=== PATIENT | male | born 1940 | race African-American/Black ===

== ENCOUNTER 2024-03-14 20:58 | Emergency (ER) | payer MEDICARE, OTHER ==
[~2024-03-14] VITALS: Ht 172.7 cm; Wt 79.8 kg
[2024-03-14] MEDS ORDERED: KETO0.0233 OP (22:46)
[2024-03-14] MEDS: DexAMETHasone SOD PHOS 10MG/1ML VIAL INJ IM ONE (22:54)
[2024-03-14] MEDS: diphenhdrAMINE HCL 25 MG CAP PO ONE (22:54)
[2024-03-14 22:55] VITALS: BP 136/82; PULSE 66; RESP 18; TEMP 98.4; O2SAT 99
== END 2024-03-14 23:12 | disposition home or self-care (01) ==
LOC: ER 20:58
DX: H10.12 Acute atopic conjunctivitis, left eye (principal)
CPT/HCPCS: 96372; 99283; J1100

== ENCOUNTER 2024-05-20 07:53 | Inpatient (IN) | payer MEDICARE, OTHER ==
[~2024-05-20] VITALS: Ht 172.7 cm; Wt 81.3 kg
[~2024-05-20 07:53] MED LIST: KETO0.0233 OP
[2024-05-20] MEDS: cloNIDine HCL 0.1 MG TAB PO ONE (08:12)
[2024-05-20 09:54] VITALS: PULSE 68; RESP 16; O2SAT 98
[2024-05-20 11:13] LABS: Basophils # (auto) 0.1 10 ^3/uL (0-0.2); Basophils % (auto) 2.1 % (0.0-2.0); Eosinophils # (auto) 0.3 10 ^3/uL (0-0.8); Hematocrit 40.6 % (41.0-53.0); Hemoglobin 13.5 g/dL (13.5-17.5); Lymphocytes # (auto) 1.2 10 ^3/uL (0.4-5.4); Lymphocytes % (auto) 26.3 % (10.0-50.0); Mean Corpuscular Hemoglobin 27.9 pg (28.0-32.0); Mean Corpuscular Hgb Conc. 33.2 g/dL (32.0-36.0); Monocytes # (auto) 0.5 10 ^3/uL (0-1.3); Neutrophils # (auto) 2.5 10 ^3/uL (1.6-8.6); Neutrophils % (auto) 54.6 % (37.0-80.0); Nucleated Red Blood Cells % 0.2 %; Platelet Count (auto) 178 10^3/uL (140-450); Red Blood Cells 4.83 10^6/uL (4.5-5.90); Red Cell Distribution Width 14.4 % (11.8-14.3); White Blood Cell 4.5 10^3/uL (4.4-10.8)
[2024-05-20 11:19] LABS: Calcium 9.9 mg/dL (8.7-10.4); Chloride 108 mmol/L (98-107); Potassium 3.8 mmol/L (3.5-5.1)
[2024-05-20 11:20] LABS: Carbon Dioxide 25 mmol/L (20-30)
[2024-05-20 11:25] LABS: BUN/Creatinine Ratio 10.2 (10.0-20.0); Blood Urea Nitrogen 13 mg/dL (9-23); Glucose 106 mg/dL (74-106)
[2024-05-20] MEDS: hydrALAZINE HCL 10 MG TAB PO ONE (11:32)
[2024-05-20 12:10] LABS: Anion Gap 8 (5-15); Sodium 141 mmol/L (136-145)
[2024-05-20] MEDS: ONDANSETRON HCL 4 MG/2 ML VIAL IV ONE (12:51)
[2024-05-20] MEDS: LABETALOL HCL 20 MG/4 ML VL IV ONE ×2 (12:51→16:13)
[2024-05-20] MEDS: NITROGLYCERIN 2% OINT 1GM PKG TD ONE (12:52)
[2024-05-20] MEDS: MORPHINE SULFATE 4 MG/ML SYR/VIAL IV ONE (12:52)
[2024-05-20] MEDS ORDERED: NITROGLYCERIN 0.4 MG SL TAB SL PRN (14:15)
[2024-05-20] MEDS ORDERED: DOCUSATE SOD 100 MG CAP PO PRN (14:15)
[2024-05-20] MEDS ORDERED: ONDANSETRON HCL 4 MG/2 ML VIAL IV PRN (14:15)
[2024-05-20 20:08] VITALS: PULSE 96; RESP 16; O2SAT 94
[2024-05-20] MEDS: HYDROcodone-ACET 5/325MG TAB PO PRN (20:41)
[2024-05-21] MEDS: LABETALOL HCL 20 MG/4 ML VL IV PRN (00:50)
[2024-05-21 04:09] VITALS: PULSE 84; RESP 18; TEMP 97.7; O2SAT 96
[2024-05-21] MEDS ORDERED: OMEP20TA PO (04:47)
[2024-05-21] MEDS ORDERED: ATOR20TA50 PO (04:47)
[2024-05-21] MEDS ORDERED: LOSA-535 PO (04:47)
[2024-05-21] MEDS ORDERED: METF-370 PO (04:47)
[2024-05-21] MEDS ORDERED: MET50T PO (04:47)
[2024-05-21] MEDS ORDERED: GLIM-38 PO (04:47)
[2024-05-21] MEDS ORDERED: CHOL20TA PO (04:47)
[2024-05-21] MEDS ORDERED: ASPI-543 PO (04:47)
[2024-05-21 08:00] VITALS: PULSE 74
[2024-05-21 08:35] LABS: Alanine Aminotransferase 24 U/L (7-40); Albumin 4.2 g/dL (3.2-4.8); Alkaline Phosphatase 98 U/L (46-116); Anion Gap 9 (5-15); Aspartate Aminotransferase 17 U/L (13-40); BUN/Creatinine Ratio 12.1 (10.0-20.0); Blood Urea Nitrogen 14 mg/dL (9-23); Calcium 9.7 mg/dL (8.7-10.4); Carbon Dioxide 26 mmol/L (20-30); Chloride 106 mmol/L (98-107); Glucose 123 mg/dL (74-106); Potassium 3.9 mmol/L (3.5-5.1); Sodium 141 mmol/L (136-145)
[2024-05-21 08:36] LABS: Bilirubin, Total 0.7 mg/dL (0.2-1.0); Total Protein 6.8 g/dL (5.7-8.2)
[2024-05-21 09:09] VITALS: BP 179/85; PULSE 81; RESP 16; TEMP 98.4; O2SAT 94
[2024-05-21] MEDS: ASPirin 81 mg TAB PO SCH (09:46)
[2024-05-21 10:27] LABS: Basophils # (auto) 0.1 10 ^3/uL (0-0.2); Basophils % (auto) 0.8 % (0.0-2.0); Eosinophils # (auto) 0.2 10 ^3/uL (0-0.8); Eosinophils % (auto) 3.1 % (0.0-7.0); Hematocrit 42.1 % (41.0-53.0); Hemoglobin 13.9 g/dL (13.5-17.5); Lymphocytes # (auto) 1.1 10 ^3/uL (0.4-5.4); Lymphocytes % (auto) 17.9 % (10.0-50.0); Mean Corpuscular Hemoglobin 28.1 pg (28.0-32.0); Mean Corpuscular Hgb Conc. 33.1 g/dL (32.0-36.0); Mean Corpuscular Volume 84.9 fL (80.0-100.0); Monocytes # (auto) 0.5 10 ^3/uL (0-1.3); Monocytes % (auto) 7.9 % (0.0-12.0); Neutrophils # (auto) 4.3 10 ^3/uL (1.6-8.6); Neutrophils % (auto) 70.3 % (37.0-80.0); Nucleated Red Blood Cells % 0.1 %; Platelet Count (auto) 169 10^3/uL (140-450); Red Blood Cells 4.96 10^6/uL (4.5-5.90); Red Cell Distribution Width 14.7 % (11.8-14.3); White Blood Cell 6.1 10^3/uL (4.4-10.8)
[2024-05-21] MEDS: LOSARTAN POTASSIUM 50 MG TAB PO ONE (11:07)
[2024-05-21 16:18] LABS: Urine Bacteria None Seen /hpf (None Seen)
[2024-05-21 16:30] LABS: Urine Blood Negative /uL (Negative); Urine Clarity Clear (Clear); Urine Color Colorless (Yellow); Urine Protein, UAD Negative (Negative); Urine Specific Gravity 1.003 (1.001-1.035); Urine Urobilinogen Normal (Negative); Urine WBC <1 /hpf (0 - 3)
[2024-05-21] MEDS: InsuLIN REG 1unit/0.01ml Soln (100units/ml) SC SCH (17:00)
[2024-05-21] MEDS ORDERED: DEXTROSE (50%) 50ML SYRG IV PRN (17:00)
[2024-05-21] MEDS: ACCU-CHEK COMFORT CURVE STRIP VI SCH (17:00)
[2024-05-21 17:36] VITALS: BP 172/107; PULSE 89; RESP 18; TEMP 97.9; O2SAT 94
[2024-05-21 20:00] VITALS: PULSE 111; PULSE 84
[2024-05-21 21:00] VITALS: BP 157/100; PULSE 92; RESP 16; TEMP 98.3; O2SAT 92
[2024-05-21] MEDS: ATORVASTATIN 20 MG TAB PO SCH (21:18)
[2024-05-21] MEDS: METOPROLOL TARTRATE 50 MG TAB PO SCH (21:19)
[2024-05-22] VITALS (11 sets, daily range): BP systolic 127–199; BP diastolic 63–98; PULSE 70–104; RESP 16–20; TEMP 97.1–98.7; O2SAT 94–99
[2024-05-22] MEDS: MORPHINE SULFATE INJ 2 MG/ml SYRG IV PRN (04:00)
[2024-05-22] MEDS: hydrALAZINE HCL 20 MG/ML VL IV PRN (05:18)
[2024-05-22 06:04] LABS: Basophils # (auto) 0.1 10 ^3/uL (0-0.2); Eosinophils # (auto) 0.2 10 ^3/uL (0-0.8); Eosinophils % (auto) 3.6 % (0.0-7.0); Hematocrit 41.1 % (41.0-53.0); Hemoglobin 13.5 g/dL (13.5-17.5); Lymphocytes # (auto) 1.1 10 ^3/uL (0.4-5.4); Mean Corpuscular Hgb Conc. 32.9 g/dL (32.0-36.0); Mean Corpuscular Volume 84.9 fL (80.0-100.0); Monocytes # (auto) 0.6 10 ^3/uL (0-1.3); Monocytes % (auto) 9.2 % (0.0-12.0); Neutrophils # (auto) 4.3 10 ^3/uL (1.6-8.6); Neutrophils % (auto) 69.2 % (37.0-80.0); Nucleated Red Blood Cells % 0.1 %; Platelet Count (auto) 177 10^3/uL (140-450); Red Blood Cells 4.84 10^6/uL (4.5-5.90); Red Cell Distribution Width 14.6 % (11.8-14.3); White Blood Cell 6.3 10^3/uL (4.4-10.8)
[2024-05-22 06:05] LABS: Chloride 107 mmol/L (98-107); Potassium 4.2 mmol/L (3.5-5.1); Sodium 140 mmol/L (136-145)
[2024-05-22 06:06] LABS: Anion Gap 7 (5-15); Calcium 9.6 mg/dL (8.7-10.4); Carbon Dioxide 26 mmol/L (20-30)
[2024-05-22 06:11] LABS: BUN/Creatinine Ratio 7.1 (10.0-20.0); Blood Urea Nitrogen 9 mg/dL (9-23); Glucose 119 mg/dL (74-106)
[2024-05-22] MEDS: LOSARTAN POTASSIUM 50 MG TAB PO SCH (09:47)
[2024-05-22] MEDS ORDERED: NIFE1TAB31 PO (13:48)
[2024-05-23] VITALS (9 sets, daily range): BP systolic 126–195; BP diastolic 67–100; PULSE 65–86; RESP 16–18; TEMP 97.7–98.7; O2SAT 94–99
[2024-05-23] MEDS ORDERED: NIFEdipine ER 30 MG TAB PO SCH (10:00)
[2024-05-23] MEDS: NIFEdipine ER 30 MG TAB PO SCH (10:00)
[2024-05-23] MEDS: hydroCHLOROthiazide 25 MG TAB PO ONE (16:06)
[2024-05-24] VITALS (7 sets, daily range): BP systolic 118–141; BP diastolic 63–75; PULSE 64–99; RESP 16–18; TEMP 98–98.6; O2SAT 97–100
[2024-05-24] MEDS: hydroCHLOROthiazide 25 MG TAB PO SCH (09:13)
[2024-05-24] MEDS: InsuLIN REG 1unit/0.01ml Soln (100units/ml) SC SCH (11:30)
[2024-05-24] MEDS ORDERED: DEXTROSE (50%) 50ML SYRG IV PRN (11:30)
[2024-05-24] MEDS: ACCU-CHEK COMFORT CURVE STRIP VI SCH (11:56)
[2024-05-24] MEDS ORDERED: CELE200C PO (12:37)
[2024-05-24] MEDS ORDERED: InsuLIN REG 1unit/0.01ml Soln (100units/ml) SC SCH (22:00)
== END 2024-05-24 18:00 | disposition home or self-care (01) | DRG 566 ==
LOC: ER 07:53 → TELE 14:11 → TELE-CENTR 05-21 04:08 → CENTRAL 05-22 11:26 → TELE-CENTR 05-23 17:34
PROVIDERS: ADMIT Internal Medicine; ATTEND Internal Medicine
DX: D16.02 Benign neoplasm of scapula and long bones of left upper limb (principal); M25.712 Osteophyte, left shoulder; E78.5 Hyperlipidemia, unspecified; I10 Essential (primary) hypertension; K21.9 Gastro-esophageal reflux disease without esophagitis; N40.0 Benign prostatic hyperplasia without lower urinary tract symptoms; J44.89 Other specified chronic obstructive pulmonary disease; I16.0 Hypertensive urgency; E11.9 Type 2 diabetes mellitus without complications; Z87.891 Personal history of nicotine dependence; Z79.4 Long term (current) use of insulin; Z79.899 Other long term (current) drug therapy
CPT/HCPCS: 36415; 71045; 73030; 80048; 80053; 81001; 82962; 83880; 84484; 85025; 93005; 93971; 93975; 96374; 96375; 97110; 97163; 97530; G0378; J1815; J2405